=== PATIENT | female | born 1965 | race Caucasian/White ===

== ENCOUNTER 2019-01-02 12:13 | Emergency (ER) | payer SELFPAY ==
[2019-01-02] MEDS ORDERED: LIDOCAINE VISCOUS 2% SOLN 15 ML UDC ONE (13:14)
[2019-01-02] MEDS ORDERED: dexAMETHasone 4 MG TAB ONE (13:14)
--- NOTE | 2019-01-02 14:15 | ER ---
Nurse's Notes [facility] Name: Silvia Rosales Age: 53 yrs Sex: Female : 1965 Arrival Date: 01/02/2019 Time: 12:17 Bed 23 Private MD: Diagnosis: Strep Pharyngitis Presentation: 01/02 12:21 Presenting complaint: Sore throat and subjective fever x 2 days, throat swelling and hb muffled voice today. Transition of care: patient was not received from another setting of care. Onset of symptoms was January 01, 2019. Risk Assessment: Do you want to hurt yourself or someone else? Patient reports no desire to harm self or others. Initial Sepsis Screen: Does the patient meet any 2 criteria? No. Patient's initial sepsis screen is negative. Does the patient have a suspected source of infection? No. Patient's initial sepsis screen is negative. Care prior to arrival: None. 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 - Social history:: Smoking status: Patient uses tobacco products, smokes one pack cigarettes per day. - Ebola Screening: : No symptoms or risks identified at this time. Screenin:20 Abuse screen: Denies threats or abuse. Nutritional screening: No deficits noted. tr5 Tuberculosis screening: No symptoms or risk factors identified. Fall Risk None identified. Assessment: 13:20 General: Appears uncomfortable, Behavior is calm, cooperative, appropriate for age. tr5 Pain: Complains of pain in throat. Neuro: Level of Consciousness is awake, alert, obeys commands, Oriented to person, place, time, situation, Business Systems Developer are equal bilaterally Moves all extremities. Cardiovascular: Heart tones present Capillary refill < 3 seconds Pulses are all present. Respiratory: Airway is patent Respiratory effort is even, unlabored, Respiratory pattern is regular, symmetrical, Breath sounds are clear bilaterally. GI: No signs and/or symptoms were reported involving the gastrointestinal system. : No signs and/or symptoms were reported regarding the genitourinary system. EENT: Throat is reddened. Derm: No signs and/or symptoms reported regarding the dermatologic system. Musculoskeletal: No signs and/or symptoms reported regarding the musculoskeletal system. Vital Signs: 12:22 BP 146 / 77; Pulse 100; Resp 20; Temp 98.2; Pulse Ox 95% on R/A; Weight 78.02 kg; hb Height 5 ft. 3 in. (160.02 cm); Pain 8/10; 12:22 Body Mass Index 30.47 (78.02 kg, 160.02 cm) hb ED Course: 12:17 Patient arrived in ED. mr 12:22 Triage completed. hb 12:22 Arm band placed on. hb 12:30 Quentin Fields MD is Attending Physician. ps1 13:10 Edd Garvin RN is Primary Nurse. tr5 13:20 Bed in low position. Call light in reach. Side rails up X 1. tr5 14:21 No provider procedures requiring assistance completed. Patient did not have IV access tr5 during this emergency room visit. Administered Medications: 13:14 Drug: Decadron 10 mg Route: PO; tr5 14:21 Follow up: Response: No adverse reaction tr5 13:14 Drug: Viscous Lidocaine Liquid (4 %) 5 ml Route: Mucous Membrane; tr5 14:21 Follow up: Response: Marked relief of symptoms tr5 14:20 Drug: Bicillin L-A 1.2 million units Route: IM; Site: right ventrogluteal; tr5 14:21 Follow up: Response: Medication administered at discharge. tr5 Outcome: 14:13 Discharge ordered by . ps1 14:32 Discharged to home ambulatory. tr5 14:32 Condition: stable 14:32 Discharge instructions given to patient, family, Instructed on discharge instructions, follow up and referral plans. Demonstrated understanding of instructions, follow-up care. 14:33 Patient left the ED. tr5 Signatures: Zora RodriguezterLaurel, RN RN Quentin Fields MD MD ps1 Edd Garvin RN RN tr5
--- NOTE | 2019-01-02 14:15 | EDPHYS ---
Physician Documentation [facility] Name: Silvia Rosales Age: 53 yrs Sex: Female : 1965 Arrival Date: 01/02/2019 Time: 12:17 Bed 23 Private MD: ED Physician Quentin Fields HPI: 01/02 13:11 This 53 yrs old Female presents to ER via Ambulatory with complaints of Sore ps1 Throat. 13:11 pain for 3 days. Hurts to swallow. Has exudates. Pain rated as moderate and worse with ps1 swallowing. No fever. Has a smokers cough. No adenopathy. . 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 - Social history:: Smoking status: Patient uses tobacco products, smokes one pack cigarettes per day. - Ebola Screening: : No symptoms or risks identified at this time. ROS: 13:11 Constitutional: Negative for fever, chills, and weight loss, Eyes: Negative for injury, ps1 pain, redness, and discharge, Cardiovascular: Negative for chest pain, palpitations, and edema, Respiratory: Negative for shortness of breath, cough, wheezing, and pleuritic chest pain, Abdomen/GI: Negative for abdominal pain, nausea, vomiting, diarrhea, and constipation, Skin: Negative for injury, rash, and discoloration, Neuro: Negative for headache, weakness, numbness, tingling, and seizure. 13:11 ENT: Positive for sore throat. 13:11 Hematologic/Lymphatic: Negative for tender nodes. Exam: 13:11 Constitutional: This is a well developed, well nourished patient who is awake, alert, ps1 and in no acute distress. Head/Face: Normocephalic, atraumatic. Respiratory: Lungs have equal breath sounds bilaterally, clear to auscultation and percussion. No rales, rhonchi or wheezes noted. No increased work of breathing, no retractions or nasal flaring. Abdomen/GI: Soft, non-tender, with normal bowel sounds. No distension or tympany. No guarding or rebound. No evidence of tenderness throughout. MS/ Extremity: Pulses equal, no cyanosis. Neurovascular intact. Full, normal range of motion. Neuro: Awake and alert, GCS 15, oriented to person, place, time, and situation. Cranial nerves II-XII grossly intact. Sensory grossly intact. 13:11 ENT: External ear(s): are unremarkable, Nose: is normal, Posterior pharynx: Airway: normal, no evidence of obstruction, Tonsils: bilaterally enlarged, with erythema, with exudate, peritonsillar mass, is not appreciated, pooling of secretions, is not appreciated. Vital Signs: 12:22 BP 146 / 77; Pulse 100; Resp 20; Temp 98.2; Pulse Ox 95% on R/A; Weight 78.02 kg; hb Height 5 ft. 3 in. (160.02 cm); Pain 8/10; 12:22 Body Mass Index 30.47 (78.02 kg, 160.02 cm) hb MDM: 13:40 Patient medically screened. ps1 14:14 Differential diagnosis: group A strep tonsillitis, peritonsillar abscess pharyngitis, ps1 retropharyngeal abcess viral syndrome. Data reviewed: vital signs, nurses notes, lab test result(s). Counseling: I had a detailed discussion with the patient and/or guardian regarding: the historical points, exam findings, and any diagnostic results supporting the discharge/admit diagnosis, lab results, to return to the emergency department if symptoms worsen or persist or if there are any questions or concerns that arise at home. ED course: encourage ice cold drinks, cepacol, return precautions. . 01/02 13:05 Order name: Strep; Complete Time: 13:38 ps1 Administered Medications: 13:14 Drug: Decadron 10 mg Route: PO; tr5 14:21 Follow up: Response: No adverse reaction tr5 13:14 Drug: Viscous Lidocaine Liquid (4 %) 5 ml Route: Mucous Membrane; tr5 14:21 Follow up: Response: Marked relief of symptoms tr5 14:20 Drug: Bicillin L-A 1.2 million units Route: IM; Site: right ventrogluteal; tr5 14:21 Follow up: Response: Medication administered at discharge. tr5 Disposition: 01/02/19 14:13 Discharged to Home. Impression: Strep Pharyngitis. - Condition is Stable. - Discharge Instructions: Strep Throat. - Medication Reconciliation Form, Thank You Letter, Antibiotic Education, Prescription Opioid Use form. - Follow up: Private Physician; When: As needed; Reason: Recheck today's complaints, Continuance of care, Re-evaluation by your physician. Follow up: Emergency Department; When: As needed; Reason: Worsening of condition. - Problem is new. - Symptoms have improved. Signatures: Dispatcher [employer] EDGA Laurel Garcia RN RN Quentin Fields MD MD ps1 Edd Garvin RN RN tr5 Corrections: (The following items were deleted from the chart) 14:33 14:13 01/02/2019 14:13 Discharged to Home. Impression: Strep Pharyngitis. Condition is tr5 Stable. Forms are Medication Reconciliation Form, Thank You Letter, Antibiotic Education, Prescription Opioid Use. Follow up: Private Physician; When: As needed; Reason: Recheck today's complaints, Continuance of care, Re-evaluation by your physician. Follow up: Emergency Department; When: As needed; Reason: Worsening of condition. Problem is new. Symptoms have improved. ps1
[2019-01-02] MEDS ORDERED: PEN G BENZ LA 1.2MU/2ML SYRINGE IM ONE (14:16)
[2019-01-02 14:38] VITALS: BP 146/77; TEMP 98.2; O2SAT 95
== END 2019-01-02 14:33 | disposition home or self-care (01) ==
LOC: ER 12:13
DX: J02.0 Streptococcal pharyngitis (principal); F17.210 Nicotine dependence, cigarettes, uncomplicated
CPT/HCPCS: 87081; 96372; 99283; J0561; J8540

== ENCOUNTER 2019-01-15 15:14 | Emergency (ER) | payer SELFPAY ==
[2019-01-15] MEDS ORDERED: MORPHINE 4 MG/ML SYR ONE (16:02)
[2019-01-15] MEDS ORDERED: ONDANSETRON 4 MG/2 ML VIAL ONE (16:02)
[2019-01-15] MEDS ORDERED: NA CHLORIDE 0.9% 1,000 ML ONE (16:02)
[2019-01-15 16:06] LABS: Absolute Lymphocytes (CBC) 2.7 K/uL (0.7-4.9); Basophils % 0.7 % (0-1.3); Hematocrit 42.6 % (36.0-45.0); MPV 7.3 fL (7.6-11.3); RBC Red Blood Cell Count 4.48 M/uL (3.86-4.86)
[2019-01-15 16:27] LABS: ALT/SGPT 32 U/L (12-78); AST/SGOT 21 U/L (15-37); Albumin 3.5 g/dL (3.4-5.0); Alkaline Phosphatase 103 U/L (45-117); BUN Blood Urea Nitrogen 13 mg/dL (7-18); Bicarbonate 27 mmol/L (21-32); Bilirubin Direct < 0.1 mg/dL (0-0.2); Bilirubin Total 0.1 mg/dL (0.2-1.0); Glucose Level 121 mg/dL (74-106); Lipase 238 U/L (73-393); Potassium 3.8 mmol/L (3.5-5.1); Protein, Total 8.2 g/dL (6.4-8.2); Sodium Level 140 mmol/L (136-145)
--- NOTE | 2019-01-15 16:57 | RAD REPORT ---
EXAM DESCRIPTION: CTAbdomen Pelvis W Contrast - 01/15/2019 4:46 pm CLINICAL HISTORY: Abdominal pain. ABD PAIN COMPARISON: <Comparisons> TECHNIQUE: Biphasic CT imaging of the abdomen and pelvis was performed with 100 ml non-ionic IV cont rast. All CT scans are performed using dose optimization technique as appropriate and may include automated exposure control or mA/KV adjustment according to patient size. FINDINGS: The lung bases are clear. The liver, spleen, pancreas, adrenal glands and kidneys are within normal limits. No bowel obstruction, free air, free fluid or abscess. Mild inflammatory changes are seen surrounding the sigmoid colon in the pelvis where multiple diverticula are present. This is most compatible with mild acute diverticulitis. No peridiverticular abscess. The appendix is normal. No evidence of sign ificant lymphadenopathy. No suspicious bony findings. IMPRESSION: Mild acute sigmoid diverticulitis is seen without abscess.
--- NOTE | 2019-01-15 17:40 | ER ---
Nurse's Notes [facility] Name: Silvia Rosales Age: 53 yrs Sex: Female : 1965 Arrival Date: 01/15/2019 Time: 15:16 Bed 8 Private MD: Carmelo Lopez F Diagnosis: Diverticulitis of small intestine without perforation or abscess without bleeding Presentation: 01/15 15:21 Presenting complaint: Patient states: that her abdomen has been hurting since Tuesday vc morning. Transition of care: patient was not received from another setting of care. Onset of symptoms was January 13, 2019. Risk Assessment: Do you want to hurt yourself or someone else? Patient reports no desire to harm self or others. Initial Sepsis Screen: Does the patient meet any 2 criteria? No. Patient's initial sepsis screen is negative. Does the patient have a suspected source of infection? No. Patient's initial sepsis screen is negative. Care prior to arrival: took PCN that she found at home. 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 Patient has never been vaccinated. - Social history:: Smoking status: Patient uses tobacco products, smokes one pack cigarettes per day. Patient uses alcohol, on a daily basis. admits to "couple of beers" a day. - Ebola Screening: : No symptoms or risks identified at this time. Screenin:50 Abuse screen: Denies threats or abuse. Denies injuries from another. Nutritional sv screening: No deficits noted. Tuberculosis screening: No symptoms or risk factors identified. Fall Risk None identified. Assessment: 15:50 General: Appears in no apparent distress. uncomfortable, well developed, Behavior is sv calm, cooperative, appropriate for age. Pain: Complains of pain in abdomen Pain currently is 8 out of 10 on a pain scale. Quality of pain is described as tender, throbbing, Is continuous. Neuro: Level of Consciousness is awake, alert, obeys commands, Oriented to person, place, time, situation, Moves all extremities. Full function Gait is unsteady. Respiratory: Respiratory effort is even, unlabored, Respiratory pattern is regular, symmetrical. GI: Abdomen is round distended, Abdomen is tender to palpation X 4 quads. Reports lower abdominal pain, upper abdominal pain. Derm: Skin is pink, warm \\T\\ dry. 16:49 Reassessment: Patient appears in no apparent distress at this time. Patient and/or sv family updated on plan of care and expected duration. Pain level reassessed. Patient is alert, oriented x 3, equal unlabored respirations, skin warm/dry/pink. Patient states feeling better. Patient states symptoms have improved. 17:50 Reassessment: Pt up for discharge but is to get IV abx before discharge. sv 17:54 Reassessment: Patient appears in no apparent distress at this time. Patient and/or sv family updated on plan of care and expected duration. Pain level reassessed. Patient is alert, oriented x 3, equal unlabored respirations, skin warm/dry/pink. 18:31 Reassessment: Patient appears in no apparent distress at this time. Patient and/or sv family updated on plan of care and expected duration. Pain level reassessed. Patient is alert, oriented x 3, equal unlabored respirations, skin warm/dry/pink. Vital Signs: 15:25 BP 143 / 86; Pulse 96; Resp 20; Temp 98.6(TE); Pulse Ox 96% on R/A; Weight 80.29 kg; vc Height 5 ft. 3 in. (160.02 cm); Pain 8/10; 16:15 BP 132 / 77; Pulse 89; Resp 22; Pulse Ox 99% ; sv 16:34 Pulse Ox 90% on R/A; sv 17:30 BP 128 / 80; Pulse 88; Resp 16; Pulse Ox 100% ; sv 18:25 BP 130 / 70; Pulse 82; Resp 16; Pulse Ox 99% ; sv 15:25 Body Mass Index 31.35 (80.29 kg, 160.02 cm) vc 16:34 Pt placed on O2 \\T\\ 2L per NC. O2 sat up to 96% sv ED Course: 15:16 Patient arrived in ED. mr 15:16 Carmelo Lopez MD is Private Physician. mr 15:23 Triage completed. vc 15:32 Demetrio Rashid NP is PHCP. pm1 15:32 Trevon Larson MD is Attending Physician. pm1 15:45 Kamille Lee RN is Primary Nurse. sv 15:50 Missed attempt(s): 20 gauge in left forearm. Bleeding controlled, band aid applied, sv catheter tip intact. 15:50 Patient has correct armband on for positive identification. Placed in gown. Bed in low sv position. Call light in reach. Pulse ox on. NIBP on. Door closed. Warm blanket given. Head of bed elevated. 15:50 Arm band placed on. sv 15:55 Missed attempt(s): 22 gauge in left forearm. Bleeding controlled, band aid applied, sv catheter tip intact. 16:00 Inserted saline lock: 20 gauge in left forearm, using aseptic technique. Blood sv collected. Flushed left forearm with 5 ml normal saline. 16:46 CT Abd/Pelvis - IV Contrast Only In Process Unspecified. EDMS 18:31 No provider procedures requiring assistance completed. IV discontinued, intact, sv bleeding controlled, No redness/swelling at site. Pressure dressing applied. Administered Medications: 16:02 Drug: Zofran 4 mg Route: IVP; Site: left forearm; sv 16:49 Follow up: Response: No adverse reaction sv 16:02 Drug: NS 0.9% 1000 ml Route: IV; Rate: 1000 ml; Site: left forearm; sv 17:00 Follow up: Response: No adverse reaction; IV Status: Completed infusion; IV Intake: sv 1000ml 16:04 Drug: morphine 4 mg Route: IVP; Site: left forearm; sv 16:49 Follow up: Response: No adverse reaction; Marked relief of symptoms; Pain is decreased; sv RASS: Drowsy (-1) 17:36 CANCELLED (Physician Discretion): Cipro 500 mg PO once pm1 17:54 Drug: LevaQUIN 750 mg Route: PO; sv 18:30 Follow up: Response: No adverse reaction sv 17:55 Drug: Flagyl 500 mg Volume: 100 ml; Route: IVPB; Rate: 200 ml/hr; Infused Over: 30 sv mins; Site: left forearm; 18:30 Follow up: Response: No adverse reaction; IV Status: Completed infusion; IV Intake: sv 100ml Intake: 17:00 IV: 1000ml; Total: 1000ml. sv 18:30 IV: 100ml; Total: 1100ml. sv Outcome: 17:31 Discharge ordered by . pm1 18:31 Discharged to home ambulatory. sv 18:31 Condition: stable 18:31 Discharge instructions given to patient, Instructed on discharge instructions, follow up and referral plans. no drinking with medication, no driving heavy equipment, medication usage, Demonstrated understanding of instructions, follow-up care, medications, Prescriptions given X 3. 18:33 Patient left the ED. sv Signatures: Dispatcher [employer] EDKamille Martinez, RN RN Zora Simmons mr GayDemetrio, PLASTIC WELDING MACHINE OPERATOR PLASTIC WELDING MACHINE OPERATOR pm1 Geni Muniz RN RN vc
--- NOTE | 2019-01-15 17:41 | EDPHYS ---
Physician Documentation [facility] Name: Silvia Rosales Age: 53 yrs Sex: Female : 1965 Arrival Date: 01/15/2019 Time: 15:16 Bed 8 Private MD: Carmelo Lopez F ED Physician Trevon Larson HPI: 01/15 17:02 This 53 yrs old Female presents to ER via Ambulatory with complaints of pm1 Abdominal Pain. 17:02 The patient presents with abdominal pain that is diffuse. Onset: The symptoms/episode pm1 began/occurred 2 day(s) ago. The symptoms do not radiate. Associated signs and symptoms: none. Pertinent negatives: nausea, vomiting, and diarrhea, chest pain, dysuria, fever, shortness of breath. The symptoms are described as achy. Modifying factors: The symptoms are alleviated by nothing, the symptoms are aggravated by nothing. Severity of pain: in the emergency department the pain is actually worse. The patient has experienced a previous episode, approximately 3 years ago, diverticulitis. The patient has not recently seen a physician. Patient ate some fruits salad on Tuesday night and also cranberry dressing with nuts. 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 Patient has never been vaccinated. - Social history:: Smoking status: Patient uses tobacco products, smokes one pack cigarettes per day. Patient uses alcohol, on a daily basis. admits to "couple of beers" a day. - Ebola Screening: : No symptoms or risks identified at this time. ROS: 17:02 Constitutional: Negative for fever, chills, and weight loss, Eyes: Negative for injury, pm1 pain, redness, and discharge, ENT: Negative for injury, pain, and discharge, Neck: Negative for injury, pain, and swelling, Cardiovascular: Negative for chest pain, palpitations, and edema, Respiratory: Negative for shortness of breath, cough, wheezing, and pleuritic chest pain. 17:02 Back: Negative for injury and pain, : Negative for injury, bleeding, discharge, and swelling, MS/Extremity: Negative for injury and deformity, Skin: Negative for injury, rash, and discoloration, Neuro: Negative for headache, weakness, numbness, tingling, and seizure. 17:02 Abdomen/GI: Positive for abdominal pain, Negative for nausea, vomiting, and diarrhea, constipation. Exam: 17:02 Constitutional: This is a well developed, well nourished patient who is awake, alert, pm1 and in no acute distress. Head/Face: Normocephalic, atraumatic. Eyes: Pupils equal round and reactive to light, extra-ocular motions intact. Lids and lashes normal. Conjunctiva and sclera are non-icteric and not injected. Cornea within normal limits. Periorbital areas with no swelling, redness, or edema. ENT: Nares patent. No nasal discharge, no septal abnormalities noted. Tympanic membranes are normal and external auditory canals are clear. Oropharynx with no redness, swelling, or masses, exudates, or evidence of obstruction, uvula midline. Mucous membranes moist. Neck: Trachea midline, no thyromegaly or masses palpated, and no cervical lymphadenopathy. Supple, full range of motion without nuchal rigidity, or vertebral point tenderness. No Meningismus. Chest/axilla: Normal chest wall appearance and motion. Nontender with no deformity. No lesions are appreciated. Cardiovascular: Regular rate and rhythm with a normal S1 and S2. No gallops, murmurs, or rubs. Normal PMI, no JVD. No pulse deficits. Respiratory: Lungs have equal breath sounds bilaterally, clear to auscultation and percussion. No rales, rhonchi or wheezes noted. No increased work of breathing, no retractions or nasal flaring. 17:02 Back: No spinal tenderness. No costovertebral tenderness. Full range of motion. Skin: Warm, dry with normal turgor. Normal color with no rashes, no lesions, and no evidence of cellulitis. MS/ Extremity: Pulses equal, no cyanosis. Neurovascular intact. Full, normal range of motion. 17:02 Abdomen/GI: Inspection: abdomen appears normal, Bowel sounds: normal, Palpation: mild abdominal tenderness, in the left lower quadrant, mass, is not appreciated, rebound tenderness, is not appreciated. 17:02 Neuro: Orientation: is normal, Motor: is normal, moves all fours, Sensation: is normal, no obvious gross deficits, Gait: is steady, at a normal pace, without difficulty. Vital Signs: 15:25 BP 143 / 86; Pulse 96; Resp 20; Temp 98.6(TE); Pulse Ox 96% on R/A; Weight 80.29 kg; vc Height 5 ft. 3 in. (160.02 cm); Pain 8/10; 16:15 BP 132 / 77; Pulse 89; Resp 22; Pulse Ox 99% ; sv 16:34 Pulse Ox 90% on R/A; sv 17:30 BP 128 / 80; Pulse 88; Resp 16; Pulse Ox 100% ; sv 18:25 BP 130 / 70; Pulse 82; Resp 16; Pulse Ox 99% ; sv 15:25 Body Mass Index 31.35 (80.29 kg, 160.02 cm) vc 16:34 Pt placed on O2 \\T\\ 2L per NC. O2 sat up to 96% sv MDM: 15:41 Patient medically screened. pm1 15:48 Data reviewed: vital signs. Data interpreted: Pulse oximetry: on room air is 96 %. pm1 Interpretation: normal. 17:23 Counseling: I had a detailed discussion with the patient and/or guardian regarding: the pm1 historical points, exam findings, and any diagnostic results supporting the discharge/admit diagnosis, lab results, radiology results. 17:28 Counseling: I had a detailed discussion with the patient and/or guardian regarding: the pm1 need for outpatient follow up, a hand cooper helper, to return to the emergency department if symptoms worsen or persist or if there are any questions or concerns that arise at home. 17:36 ED course: Discussed Clear liquid diet with patient and cessation of foods that can pm1 trigger diverticulitis . 01/15 15:32 Order name: Basic Metabolic Panel; Complete Time: 16:29 pm1 01/15 15:32 Order name: CBC with Diff; Complete Time: 16:11 pm1 01/15 15:32 Order name: Creatinine for Radiology; Complete Time: 16:29 pm1 01/15 15:32 Order name: Hepatic Function; Complete Time: 16:29 pm1 01/15 15:32 Order name: Lipase; Complete Time: 16:29 pm1 01/15 15:32 Order name: IV Saline Lock; Complete Time: 16:10 pm1 12 15:48 Order name: CT Abd/Pelvis - IV Contrast Only; Complete Time: 17:13 pm1 12 15:32 Order name: Labs collected and sent; Complete Time: 16:10 pm1 Administered Medications: 16:02 Drug: Zofran 4 mg Route: IVP; Site: left forearm; sv 16:49 Follow up: Response: No adverse reaction sv 16:02 Drug: NS 0.9% 1000 ml Route: IV; Rate: 1000 ml; Site: left forearm; sv 17:00 Follow up: Response: No adverse reaction; IV Status: Completed infusion; IV Intake: sv 1000ml 16:04 Drug: morphine 4 mg Route: IVP; Site: left forearm; sv 16:49 Follow up: Response: No adverse reaction; Marked relief of symptoms; Pain is decreased; sv RASS: Drowsy (-1) 17:36 CANCELLED (Physician Discretion): Cipro 500 mg PO once pm1 17:54 Drug: LevaQUIN 750 mg Route: PO; sv 18:30 Follow up: Response: No adverse reaction sv 17:55 Drug: Flagyl 500 mg Volume: 100 ml; Route: IVPB; Rate: 200 ml/hr; Infused Over: 30 sv mins; Site: left forearm; 18:30 Follow up: Response: No adverse reaction; IV Status: Completed infusion; IV Intake: sv 100ml Disposition: 01/16 07:23 Co-signature as Attending Physician, Trevon Larson MD. rn Disposition: 01/15/19 17:31 Discharged to Home. Impression: Diverticulitis of small intestine without perforation or abscess without bleeding. - Condition is Stable. - Discharge Instructions: Diverticulitis. - Prescriptions for Flagyl 500 mg Oral Tablet - take 1 tablet by ORAL route every 6 hours for 10 days; 40 tablet. Levaquin 750 mg Oral Tablet - take 1 tablet by ORAL route once daily for 10 days; 10 tablet. Tylenol- Codeine #3 300-30 mg Oral Tablet - take 2 tablets by ORAL route every 6 hours As needed; 20 tablet. - Medication Reconciliation Form, Thank You Letter, Antibiotic Education, Prescription Opioid Use form. - Follow up: Emergency Department; When: As needed; Reason: Worsening of condition. Follow up: Private Physician; When: 2 - 3 days; Reason: Recheck today's complaints, Continuance of care, Re-evaluation by your physician. - Problem is new. - Symptoms have improved. Signatures: Dispatcher [employer] EDMS Kamille Lee RN RN Trevon Larson MD MD rn Marinas, Patrick, TOOL DESIGN DRAFTER TOOL DESIGN DRAFTER pm1 Geni Muniz RN RN vc Corrections: (The following items were deleted from the chart) 01/15 17:35 17:31 01/15/2019 17:31 Discharged to Home. Impression: Diarrhea, unspecified; Ascites - pm1 mild; Fatty (change of) liver, not elsewhere classified. Condition is Stable. Forms are Medication Reconciliation Form, Thank You Letter, Antibiotic Education, Prescription Opioid Use. Follow up: Emergency Department; When: As needed; Reason: Worsening of condition. Follow up: Private Physician; When: 2 - 3 days; Reason: Recheck today's complaints, Continuance of care, Re-evaluation by your physician. Problem is new. Symptoms have improved. pm1 17:36 17:20 Cipro 500 mg PO once ordered. pm1 pm1 17:39 17:02 Abdomen/GI: Inspection: abdomen appears normal, Bowel sounds: normal, Palpation: pm1 abdomen is soft and non-tender, in all quadrants, mass, is not appreciated, rebound tenderness, is not appreciated, pm1 17:40 17:28 ED course: pending stool cultures, patient provided same. Likely viral diarrhea. pm1 Will not provide antibiotic therapy until culture results reported. Recommended OTC probiotics to the patient. pm1 17:40 17:28 Special discussion: Alcohol cessation due to laboratory findings and CT results: pm1 fatty liver and ascites. pm1 18:30 16:14 Urine Dipstick-Ancillary ordered. pm1 sv 18:33 17:35 01/15/2019 17:31 Discharged to Home. Impression: Diverticulitis of small sv intestine without perforation or abscess without bleeding. Condition is Stable. Discharge Instructions: Food Choices to Help Relieve Diarrhea, Adult, Diarrhea, Adult, Nonalcoholic Fatty Liver Disease Diet. Forms are Medication Reconciliation Form, Thank You Letter, Antibiotic Education, Prescription Opioid Use. Follow up: Emergency Department; When: As needed; Reason: Worsening of condition. Follow up: Private Physician; When: 2 - 3 days; Reason: Recheck today's complaints, Continuance of care, Re-evaluation by your physician. Problem is new. Symptoms have improved. pm1
[2019-01-15] MEDS ORDERED: levoFLOXacin 750 MG TAB ONE (17:52)
[2019-01-15] MEDS ORDERED: METRONIDAZOLE 500mg IVPB 500 MG/100 ML BAG IV ONE (17:52)
[2019-01-16 00:31] VITALS: TEMP 98.6
[2019-01-16 00:35] VITALS: BP 130/70; O2SAT 99
== END 2019-01-15 18:33 | disposition home or self-care (01) ==
LOC: ER 15:14
DX: K57.12 Diverticulitis of small intestine without perforation or abscess without bleeding (principal); F17.210 Nicotine dependence, cigarettes, uncomplicated
CPT/HCPCS: 36415; 74177; 80048; 80076; 83690; 85025; 96361; 96365; 96375; 99284; J2405; J7030; Q9967

== ENCOUNTER 2019-01-17 10:38 | Emergency (ER) | payer SELFPAY ==
[2019-01-17 11:31] LABS: Absolute Lymphocytes (CBC) 2.1 K/uL (0.7-4.9); Basophils % 0.4 % (0-1.3); Hematocrit 40.9 % (36.0-45.0); Lymphocytes % 15.1 % (15.3-44.8); MPV 7.4 fL (7.6-11.3)
[2019-01-17 11:42] LABS: Urine Blood TRACE (NEG); Urine Glucose NEGATIVE (NEG); Urine Protein NEGATIVE (NEG)
[2019-01-17] MEDS ORDERED: MORPHINE 4 MG/ML SYR ONE (11:44)
[2019-01-17] MEDS ORDERED: NA CHLORIDE 0.9% 1,000 ML ONE (11:44)
[2019-01-17] MEDS ORDERED: ONDANSETRON 4 MG/2 ML VIAL ONE (11:44)
[2019-01-17 12:10] LABS: Urine Bacteria <20 /HPF (<20); Urine Culture Reflex Order NOT NEEDED; Urine Mucus SLIGHT /HPF (NONE SEEN); Urine RBC <5 /HPF (NONE SEEN)
--- NOTE | 2019-01-17 12:41 | RAD REPORT ---
EXAM DESCRIPTION: CTAbdomen Pelvis W Contrast - 01/17/2019 12:30 pm CLINICAL HISTORY: Abdominal pain. ABD PAIN COMPARISON: Abdomen Pelvis W Contrast dated 01/15/2019; Abdomen Pelvis W Contrast dated 08/19/2015; CT ABD PELVIS W CONTRAST dated 02/27/2015 TECHNIQUE: Biphasic CT imaging of the abdomen and pelvis was performed with 100 ml non-ionic IV cont rast. All CT scans are performed using dose optimization technique as appropriate and may include automated exposure control or mA/KV adjustment according to patient size. FINDINGS: The lung bases are clear. The liver, spleen, pancreas, adrenal glands and kidneys are within normal limits. No bowel obstruction, free air, free fluid or abscess. Sigmoid diverticulitis again seen in the pelvi s, essentially unchanged. No evidence peridiverticular abscess. The appendix is normal. No evidence of significant lymphadenopathy. No suspicious bony findings. IMPRESSION: Mild acute diverticulitis involving the sigmoid colon shows no significant change since recent prior study.
--- NOTE | 2019-01-17 12:59 | EDPHYS ---
Physician Documentation [facility] Name: Silvia Rosales Age: 53 yrs Sex: Female : 1965 Arrival Date: 01/17/2019 Time: 10:40 Bed 17 Private MD: ED Physician Quentin Fields HPI: 01/17 11:26 This 53 yrs old Female presents to ER via Ambulatory with complaints of kb Abdominal Pain. 11:26 The patient presents with abdominal pain in the left lower quadrant. Onset: The kb symptoms/episode began/occurred 5 day(s) ago. The symptoms do not radiate. Associated signs and symptoms: Pertinent positives: constipation, fever. The symptoms are described as constant. Modifying factors: The symptoms are alleviated by nothing, the symptoms are aggravated by movement, pressure. Severity of pain: At its worst the pain was moderate severe in the emergency department the pain is unchanged. The patient has experienced similar episodes in the past. The patient has been recently seen at the [facility], this week, for similar complaints labs were performed, CT scan was performed, was given a prescription for antibiotics. Pt reports she was diagnosed with diverticulitis on Tuesday and came back today because the pain has gotten more severe. . 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 - Social history:: Smoking status: Patient uses tobacco products, smokes one pack cigarettes per day. - Ebola Screening: : No symptoms or risks identified at this time. ROS: 11:22 Constitutional: Negative for fever, chills, and weight loss, ENT: Negative for injury, kb pain, and discharge, Neck: Negative for injury, pain, and swelling, Cardiovascular: Negative for chest pain, palpitations, and edema, Respiratory: Negative for shortness of breath, cough, wheezing, and pleuritic chest pain, Back: Negative for injury and pain, MS/Extremity: Negative for injury and deformity, Skin: Negative for injury, rash, and discoloration, Neuro: Negative for headache, weakness, numbness, tingling, and seizure. 11:22 Abdomen/GI: Positive for abdominal pain, constipation. 11:22 : Positive for difficulty urinating. Exam: 11:22 Constitutional: This is a well developed, well nourished patient who is awake, alert, kb and in no acute distress. Head/Face: Normocephalic, atraumatic. Chest/axilla: Normal chest wall appearance and motion. Nontender with no deformity. No lesions are appreciated. Cardiovascular: Regular rate and rhythm with a normal S1 and S2. No gallops, murmurs, or rubs. Normal PMI, no JVD. No pulse deficits. Respiratory: Lungs have equal breath sounds bilaterally, clear to auscultation and percussion. No rales, rhonchi or wheezes noted. No increased work of breathing, no retractions or nasal flaring. Back: No spinal tenderness. No costovertebral tenderness. Full range of motion. Skin: Warm, dry with normal turgor. Normal color with no rashes, no lesions, and no evidence of cellulitis. MS/ Extremity: Pulses equal, no cyanosis. Neurovascular intact. Full, normal range of motion. Neuro: Awake and alert, GCS 15, oriented to person, place, time, and situation. Cranial nerves II-XII grossly intact. Motor strength 5/5 in all extremities. Sensory grossly intact. Cerebellar exam normal. Normal gait. 11:22 Abdomen/GI: Inspection: abdomen appears normal, Bowel sounds: normal, in all quadrants, Palpation: soft, in all quadrants, moderate abdominal tenderness, in the left lower quadrant. Vital Signs: 10:51 BP 131 / 78; Pulse 96; Resp 16; Temp 97.8; Pulse Ox 100% on R/A; Weight 79.38 kg; hb Height 5 ft. 3 in. (160.02 cm); Pain 8/10; 11:30 BP 122 / 74; Pulse 91; Resp 16; Pulse Ox 96% ; bp 12:30 BP 120 / 78; Pulse 87; Resp 16; Pulse Ox 96% ; bp 10:51 Body Mass Index 31.00 (79.38 kg, 160.02 cm) hb MDM: 11:09 Patient medically screened. kb 11:21 Data reviewed: vital signs, nurses notes. Data interpreted: Pulse oximetry: on room air kb is 100 %. Interpretation: normal. 12:56 Counseling: I had a detailed discussion with the patient and/or guardian regarding: the kb historical points, exam findings, and any diagnostic results supporting the discharge/admit diagnosis, lab results, radiology results, the need for further work-up and treatment in the hospital. Physician consultation: Lavon Gutierrez MD was contacted at 12:57, regarding admission, to the medical/surgical unit. patient's condition, and will see patient in ED, shortly. ED course: Will admit pt for diverticulitis with failed outpatient treatment due to worsening symptoms/pain. CT with no change since Tuesday and WBC decreased from 16 to 13. . 13:02 ED course: Pt prefers to go home instead of being admitted since CT is not worse than kb the previous one. Educated on sliding scale clinics to follow up with and to return if unable to tolerate medications, symptoms get worse, etc. Verbal understanding of all information received. . 01/17 11:11 Order name: Basic Metabolic Panel; Complete Time: 11:47 kb 01/17 11:11 Order name: CBC with Diff; Complete Time: 11:40 kb 01/17 11:11 Order name: Urine Microscopic Only; Complete Time: 12:12 kb 01/17 11:17 Order name: CT Abd/Pelvis - IV Contrast Only; Complete Time: 12:50 kb 01/17 11:35 Order name: Urine Dipstick--Ancillary (enter results); Complete Time: 11:44 bd 01/17 11:11 Order name: IV Saline Lock; Complete Time: 11:24 kb 01/17 11:11 Order name: Labs collected and sent; Complete Time: 11:24 kb 01/17 11:11 Order name: Urine Dipstick-Ancillary (obtain specimen); Complete Time: 11:26 kb Administered Medications: 11:30 Drug: NS 0.9% 1000 ml Route: IV; Rate: 1000 ml; Site: right forearm; bp 13:23 Follow up: IV Status: Completed infusion; IV Intake: 1000ml bp 11:30 Drug: Zofran 4 mg Route: IVP; Site: right forearm; bp 13:25 Follow up: Response: Nausea is decreased bp 11:30 Drug: morphine 4 mg Route: IVP; Site: right forearm; bp 13:24 Follow up: Response: Pain is decreased bp Disposition: 18:55 Co-signature as Attending Physician, Quentin Fields MD Signing chart for administrative ps1 purposes. Available for consultation in ED. . Disposition: 01/17/19 13:02 Discharged to Home. Impression: Diverticulitis of intestine, part unspecified, without perforation or abscess without bleeding. - Condition is Stable. - Discharge Instructions: Diverticulitis, [id number]. - Medication Reconciliation Form, Thank You Letter, Antibiotic Education, Prescription Opioid Use form. - Follow up: Emergency Department; When: As needed; Reason: Worsening of condition. Follow up: Private Physician; When: 2 - 3 days; Reason: Recheck today's complaints, Continuance of care, Re-evaluation by your physician. Signatures: Dispatcher [employer] EDMS Brenna Rowland, COMMUTATOR OPERATOR-C COMMUTATOR OPERATOR-Ckb Laurel Garcia, RN RN Ozzy Alicia, REBECA RN Quentin Yadav MD MD ps1 Corrections: (The following items were deleted from the chart) 13:02 12:58 Hospitalization Ordered by Lavon Gutierrez MD for Inpatient Admission. Preliminary kb diagnosis is Diverticulitis of intestine, part unspecified, without perforation or abscess without bleeding - failed outpatient treatment. Bed requested for Telemetry/MedSurg (Inpatient). Status is Inpatient Admission. Condition is Stable. Problem is new. Symptoms are unchanged. UTI on Admission? No. kb 13:25 13:02 01/17/2019 13:02 Discharged to Home. Impression: Diverticulitis of intestine, bp part unspecified, without perforation or abscess without bleeding. Condition is Stable. Forms are Medication Reconciliation Form, Thank You Letter, Antibiotic Education, Prescription Opioid Use. Follow up: Emergency Department; When: As needed; Reason: Worsening of condition. Follow up: Private Physician; When: 2 - 3 days; Reason: Recheck today's complaints, Continuance of care, Re-evaluation by your physician. kb
--- NOTE | 2019-01-17 12:59 | ER ---
Nurse's Notes [facility] Name: Silvia Rosales Age: 53 yrs Sex: Female : 1965 Arrival Date: 01/17/2019 Time: 10:40 Bed 17 Private MD: Diagnosis: Diverticulitis of intestine, part unspecified, without perforation or abscess without bleeding Presentation: 01/17 10:49 Presenting complaint: Lower abdominal pain x 5 days, difficulty urinating and nausea x hb 2 days. On Flagyl and Levaquin Day 3 for diverticulitis. 10:50 Transition of care: patient was not received from another setting of care. Onset of hb symptoms was January 13, 2019. Risk Assessment: Do you want to hurt yourself or someone else? Patient reports no desire to harm self or others. Care prior to arrival: None. 10:50 Method Of Arrival: Ambulatory hb 10:50 Acuity: ROB 3 hb Triage Assessment: 10:50 General: Appears in no apparent distress. uncomfortable, obese, Behavior is bp cooperative, appropriate for age, anxious. Pain: Complains of pain in left lower quadrant. EENT: No deficits noted. Neuro: No deficits noted. Cardiovascular: No deficits noted. Respiratory: No deficits noted. GI: Reports lower abdominal pain. : No deficits noted. Derm: No deficits noted. Musculoskeletal: No deficits noted. 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 - Social history:: Smoking status: Patient uses tobacco products, smokes one pack cigarettes per day. - Ebola Screening: : No symptoms or risks identified at this time. Screenin:00 Abuse screen: Denies threats or abuse. Denies injuries from another. Nutritional bp screening: No deficits noted. Tuberculosis screening: No symptoms or risk factors identified. Fall Risk None identified. Assessment: 11:00 General: SEE TRIAGE NOTE. Pain: Complains of pain in left lower quadrant. GI: Bowel bp sounds present X 4 quads. Abdomen is tender to palpation in left lower quadrant. 13:00 Reassessment: ALL CURRENT ORDERS COMPLETED, DISPO PENDING. bp 13:22 Reassessment: PT D/C HOME AMBULATORY, DX WITH DIVERTICULTIS. bp Vital Signs: 10:51 BP 131 / 78; Pulse 96; Resp 16; Temp 97.8; Pulse Ox 100% on R/A; Weight 79.38 kg; hb Height 5 ft. 3 in. (160.02 cm); Pain 8/10; 11:30 BP 122 / 74; Pulse 91; Resp 16; Pulse Ox 96% ; bp 12:30 BP 120 / 78; Pulse 87; Resp 16; Pulse Ox 96% ; bp 10:51 Body Mass Index 31.00 (79.38 kg, 160.02 cm) hb ED Course: 10:40 Patient arrived in ED. mr 10:51 Triage completed. hb 10:51 Arm band placed on. hb 11:00 Patient has correct armband on for positive identification. Bed in low position. Call bp light in reach. Side rails up X2. 11:09 Brenna Rowland FNP-C [facility]. kb 11:09 Quentin Fields MD is Attending Physician. kb 11:09 Ozzy Saunders, REBECA is Primary Nurse. bp 11:19 Initial lab(s) drawn, by me, sent to lab. Inserted saline lock: 20 gauge in right dh3 forearm, using aseptic technique. Blood collected. 12:31 CT Abd/Pelvis - IV Contrast Only In Process Unspecified. EDMS 12:57 Lavon Gutierrez MD is Hospitalizing Provider. kb 13:23 No provider procedures requiring assistance completed. IV discontinued, intact, bp bleeding controlled, No redness/swelling at site. Pressure dressing applied. Administered Medications: 11:30 Drug: NS 0.9% 1000 ml Route: IV; Rate: 1000 ml; Site: right forearm; bp 13:23 Follow up: IV Status: Completed infusion; IV Intake: 1000ml bp 11:30 Drug: Zofran 4 mg Route: IVP; Site: right forearm; bp 13:25 Follow up: Response: Nausea is decreased bp 11:30 Drug: morphine 4 mg Route: IVP; Site: right forearm; bp 13:24 Follow up: Response: Pain is decreased bp Intake: 13:23 IV: 1000ml; Total: 1000ml. bp Outcome: 12:58 Decision to Hospitalize by Provider. kb 13:02 Discharge ordered by MD. kb 13:25 Patient left the ED. bp Signatures: Dispatcher [employer] EDMS Brenna Rowland, MIRZA-C AIRCRAFT DESIGNER-Joceline Zora Rodriguez mr Laurel Garcia, RN RN [facility] Ozzy Saunders, RN RN bp Corrections: (The following items were deleted from the chart) 10:51 10:49 Presenting complaint: Lower abdominal pain x 5 days, difficulty urinating and hb nausea x 2 days. hb 13:07 13:00 Reassessment: ADMIT IN PROCESS bp bp
[2019-01-17 14:09] VITALS: TEMP 97.8
[2019-01-17 14:10] VITALS: O2SAT 96
[2019-01-17 14:11] VITALS: BP 120/78
== END 2019-01-17 13:25 | disposition home or self-care (01) ==
LOC: ER 10:38
DX: K57.92 Diverticulitis of intestine, part unspecified, without perforation or abscess without bleeding (principal); F17.210 Nicotine dependence, cigarettes, uncomplicated
CPT/HCPCS: 36415; 74177; 80048; 81003; 81015; 85025; 96361; 96374; 96375; 99284; J2405; J7030; Q9967

== ENCOUNTER 2020-10-19 19:05 | Emergency (ER) | payer SELFPAY | END 2020-10-19 21:15 | disposition left against medical advice (07) | LOC: ER 19:05 | DX: Z02.9 Encounter for administrative examinations, unspecified (principal) ==